=== PATIENT | female | born 1965 | race Caucasian/White ===

== ENCOUNTER 2016-10-25 09:16 | Emergency (ER) | payer OTHER ==
[~2016-10-25 09:16] MED LIST: ALPRAZOLAM0.25 MG PO; AMITRIPTYLINE H10 M1 PO; AMITRIPTYLINE25 MG PO; ATIVAN1 MG PO; BUPROPION100 MG PO; BYSTOLIC PO; CALCIUM 500 + D1 TA2 PO; CALCIUM600 M1 PO; CEFDINIR300 MG PO; CEFTIN250 MG PO; CEFTIN500 MG PO; CEPHALEXIN500 M2 PO; CIPRO 500MG TA500 MG PO; CITALOPRAM10 MG PO; CLEOCIN HC150 MG/CAP PO; CLONAZEPAM0.5 M1 PO; CLONAZEPAM1 MG PO; CYCLOBENZAPRINE10 MG PO; CYMBALTA20 MG PO; CYMBALTA30 M1 PO; CYMBALTA60 M1 PO; DEPAKENE; DEPAKOTE500 M1 PO; DEPAKOTE500 M2 PO; ELITE MAGNESIUM1 TAB PO; FLONASE ALLERG9.9 ML NAS; FLUOXETINE40 MG PO; GABAPENTIN TAB600 MG PO; HYDROXYZINE HCL25 MG PO; HYDROXYZINE50 MG PO; IBIFON 600600 MG PO; IMITREX100 MG PO; IMODIUM A-D2 M2 PO; INDOCIN 25MG CA25 MG PO; INDOCIN25 MG PO; INDOMETHACIN50 M2 PO; LEVETIRACETAM PO; LIDOCAINE HCL100 M1 MM; LORTAB 5/500 501 TAB PO; LUNESTA1 M1 PO; LUNESTA1 MG PO; MAG-OX 400400 MG PO; MAXALT MLT5 MG PO; MAXALT10 MG PO; MECLIZINE25 MG PO; METOPROLOL SUCC25 M1 PO; METOPROLOL TART25 MG PO; MIDRIN 325 MG-11 CAP PO; MIGRANAL0.5 MG/ACT IH; MIRALAX17 GM/DOSE PO; MOBIC7.5 M1 PO; NAPROSYN500 MG PO; NEXIUM 40MG40 MG PO; NORCO 325 MG-51 TA1 PO; NORCO 325 MG-51 TAB PO; NORCO 325 MG-7.1 TA1 PO; NORFLEX100 MG PO; NORFLEX30 MG/ML PO; NUVARING VAG RING VG; OMEPRAZOLE MAGN20 MG PO; PANTOPRAZOLE40 MG PO; PERCOCET 325 MG1 TA2 PO; PERCOCET 325 MG1 TA4 PO; PHENERGAN 25 TA25 MG PO; PHENTERMINE H37.5 M3 PO; PHENTERMINE15 MG PO; PROPRANOLOL HCL80 M1 PO; PROPRANOLOL HY120 MG PO; PROPRANOLOL HY160 MG PO; PROPRANOLOL60 MG PO; PROTRIPTYLINE PO; PYRIDIUM100 M1 PO; QSYMIA 11.25 MG1 CER PO; RANITIDINE HCL150 MG PO; RITE AID MAGNE500 MG PO; SERTRALINE100 MG PO; SLOW-MAG535 MG PO; SUMATRIPTAN SU100 MG PO; SUMATRIPTAN SUC25 MG PO; TOPAMAX25 M1 PO; TOPAMAX50 M1 PO; TOPAMAX50 MG PO; TYLENOL 500MG500 MG PO; VITAMIN B2100 MG PO; ZANAFLEX 4MG TAB4 MG PO; ZOCOR 20MG20 MG PO; ZOFRAN ODT8 MG PO; ZOLOFT100 MG PO; [UNRECOGNIZED DRUG - OTHER] PO
[2016-10-25] MEDS ORDERED: CIPRO250 M1 PO (10:26)
[2016-10-25 10:52] VITALS: BP 130/81
== END 2016-10-25 10:50 | disposition home or self-care (01) ==
LOC: ED 09:16
DX: N30.00 Acute cystitis without hematuria (principal)
CPT/HCPCS: J1885

== ENCOUNTER → 2016-11-01 | Outpatient (CLI) | payer OTHER ==
[~2016-11-01] MED LIST changes: +CIPRO250 M1 PO
== END ==
LOC: LAB 15:55
DX: B37.3 Candidiasis of vulva and vagina (principal)

== ENCOUNTER 2018-03-03 20:11 | Emergency (ER) | payer OTHER ==
[~2018-03-03] VITALS: Ht 157.5 cm; Wt 97.7 kg
[~2018-03-03 20:11] MED LIST changes: +AMBIEN5 M1 PO; +HEARTBURN RELI150 MG PO; -PANTOPRAZOLE40 MG PO; +PROTONIX TR40 M1 PO; +ZONISAMIDE100 MG PO
[2018-03-03] MEDS ORDERED: PERCOCET 325 MG1 TA2 PO (20:24)
[2018-03-03] MEDS ORDERED: OTEZLA30 MG PO (20:27)
[2018-03-03] MEDS ORDERED: BELVIQ10 MG PO (20:28)
[2018-03-03] MEDS ORDERED: MOBIC15 M1 PO (20:29)
[2018-03-03] MEDS ORDERED: MEDI-FIRST ASP325 MG PO (20:29)
[2018-03-03] MEDS ORDERED: SUNMARK MAGNES250 MG PO (20:29)
[2018-03-03 22:40] VITALS: BP 134/76
== END 2018-03-03 22:40 | disposition home or self-care (01) ==
LOC: ED 20:11
DX: M94.0 Chondrocostal junction syndrome [Tietze] (principal); W19.XXXA Unspecified fall, initial encounter; Y92.009 Unspecified place in unspecified non-institutional (private) residence as the place of occurrence of the external cause; S82.891D Other fracture of right lower leg, subsequent encounter for closed fracture with routine healing; W19.XXXD Unspecified fall, subsequent encounter; Z79.899 Other long term (current) drug therapy

== ENCOUNTER → 2018-03-29 | Outpatient (CLI) | payer OTHER ==
[2018-03-03 22:40] VITALS: BP 134/76
[~2018-03-29] MED LIST changes: +BELVIQ10 MG PO; +MEDI-FIRST ASP325 MG PO; +MOBIC15 M1 PO; +OTEZLA30 MG PO; +SUNMARK MAGNES250 MG PO
== END ==
LOC: RAD 10:54
DX: S82.891D Other fracture of right lower leg, subsequent encounter for closed fracture with routine healing (principal); S82.51XD Displaced fracture of medial malleolus of right tibia, subsequent encounter for closed fracture with routine healing; M25.871 Other specified joint disorders, right ankle and foot; Z96.7 Presence of other bone and tendon implants

== ENCOUNTER 2018-04-01 15:54 | Emergency (ER) | payer OTHER ==
[~2018-04-01] VITALS: Ht 157.5 cm; Wt 99.5 kg
[2018-04-01 18:04] VITALS: BP 136/82
== END 2018-04-01 17:45 | disposition home or self-care (01) ==
LOC: ED 15:54
DX: R51 Headache (principal); Z79.899 Other long term (current) drug therapy; G43.909 Migraine, unspecified, not intractable, without status migrainosus
CPT/HCPCS: J1885; J2765; J7030

== ENCOUNTER → 2018-04-12 | Outpatient (CLI) | payer OTHER ==
[2018-04-01 18:04] VITALS: BP 136/82
== END ==
LOC: RAD 08:50
DX: S82.61XD Displaced fracture of lateral malleolus of right fibula, subsequent encounter for closed fracture with routine healing (principal); Z96.89 Presence of other specified functional implants

== ENCOUNTER 2018-07-13 13:30 | Outpatient (RCR) | payer OTHER | END 2018-07-16 | disposition home or self-care (01) | LOC: PT | DX: S82.401D Unspecified fracture of shaft of right fibula, subsequent encounter for closed fracture with routine healing (principal) ==

== ENCOUNTER 2018-07-18 10:00 | Outpatient (RCR) | payer OTHER | END 2018-07-18 10:30 | disposition home or self-care (01) | LOC: PT 10:00 | DX: S82.401D Unspecified fracture of shaft of right fibula, subsequent encounter for closed fracture with routine healing (principal) ==

== ENCOUNTER → 2018-07-18 | Outpatient (CLI) | payer OTHER | LOC: RAD 10:31 | DX: Z09 Encounter for follow-up examination after completed treatment for conditions other than malignant neoplasm (principal); Z87.81 Personal history of (healed) traumatic fracture; Z96.7 Presence of other bone and tendon implants; Z98.890 Other specified postprocedural states; M19.071 Primary osteoarthritis, right ankle and foot ==

== ENCOUNTER → 2019-05-30 | Outpatient (CLI) | payer OTHER ==
[2019-01-24 16:01] VITALS: BP 138/81
== END ==
LOC: RAD 09:21
DX: M25.571 Pain in right ankle and joints of right foot (principal)

== ENCOUNTER → 2019-06-25 | Outpatient (CLI) | payer OTHER ==
[2019-01-24 16:01] VITALS: BP 138/81
== END ==
LOC: LAB 10:59
DX: R30.0 Dysuria (principal)

== ENCOUNTER → 2020-03-06 | Outpatient (CLI) | payer OTHER ==
[2020-02-07 19:35] VITALS: BP 165/85
[~2020-03-06] MED LIST changes: +ABILIFY 10MG TA10 MG PO; +AIMOVIG AU140 MG/1 M SQ; +CALCIUM 600 MG-1 TAB PO; +RELPAX 40MG TAB40 MG PO; +TOPAMAX200 M1 PO; +VITAMIN B122500 MC1 PO
== END ==
LOC: LAB 17:22
DX: J02.9 Acute pharyngitis, unspecified (principal); R50.9 Fever, unspecified; R43.2 Parageusia; R43.0 Anosmia; R09.81 Nasal congestion; R05 Cough; Z20.828 Contact with and (suspected) exposure to other viral communicable diseases

== ENCOUNTER → 2020-04-09 | Outpatient (CLI) | payer OTHER ==
[2020-02-07 19:35] VITALS: BP 165/85
== END ==
LOC: RAD 15:37 → LAB 15:37
DX: M25.571 Pain in right ankle and joints of right foot (principal)

== ENCOUNTER 2021-04-29 14:35 | Emergency (ER) | payer OTHER ==
[~2021-04-29] VITALS: Ht 157.5 cm; Wt 93.0 kg
[2021-04-29] MEDS ORDERED: ATORVASTATIN CA20 MG PO (14:59)
[2021-04-29] MEDS ORDERED: WELLBUTRIN ×2 (15:00→15:01)
[2021-04-29] MEDS ORDERED: LAMICTAL 25MG T25 MG PO (15:02)
[2021-04-29] MEDS ORDERED: BENAZEPRIL HCL20 MG PO (15:03)
[2021-04-29 15:25] LABS: BASO # 0.04 (0.02-0.10); EOS # 0.37 (0.04-0.40); EOS % 3.4 % (1.0-5.0); HEMOGLOBIN 11.5 g/dL (12.5-16.0); LYMPH# 4.24 (1.50-4.00); MEAN CELL VOLUME 82 fl (78-100); MEAN CORPUSCULAR HEMOGLOBIN 26 pg (27-31); MEAN CORPUSCULAR HGB CONC 32 g/dL (33-37); MEAN PLATELET VOLUME 10.5 fl (7.4-10.4); MONO # 0.89 (0.20-0.80); NEU # 5.35 (1.40-6.50); PLATELET COUNT 335 K/mm3 (130-400); RED BLOOD COUNT 4.37 M/mm3 (4.10-5.30); RED CELL DISTRIBUTION WIDTH 13.5 % (11.5-14.5); WHITE BLOOD COUNT 10.9 K/mm3 (4.8-10.8)
[2021-04-29 15:44] LABS: ALBUMIN 4.1 g/dL (3.5-5.0); SODIUM 139 mmol/L (136-145)
[2021-04-29 15:45] LABS: CALCIUM 10.4 mg/dL (8.3-10.5)
[2021-04-29 15:46] LABS: GLUCOSE 109 mg/dL (65-105); TOTAL PROTEIN 7.5 g/dL (6.4-8.3)
[2021-04-29 15:47] LABS: CARBON DIOXIDE 23 mmol/L (22-29)
[2021-04-29 15:48] LABS: TOTAL BILIRUBIN 0.3 mg/dL (0.2-1.2)
[2021-04-29 15:52] LABS: AST-SGOT 15 U/L (5-34)
[2021-04-29 15:53] LABS: ALT/SGPT 21 U/L (0-55)
[2021-04-29 16:01] LABS: TROPONIN-I < 0.03 ng/mL (<0.030)
[2021-04-29 16:33] LABS: D-DIMER 0.18 mg/L FEU (0.15-0.50)
[2021-04-29 17:10] VITALS: BP 147/98
[2021-04-29] MEDS ORDERED: ATIVAN0.5 MG PO (17:10)
== END 2021-04-29 15:45 | disposition home or self-care (01) ==
LOC: ED 14:35
PROVIDERS: Physician Assistant
DX: F41.9 Anxiety disorder, unspecified (principal); R07.89 Other chest pain; F32.9 Major depressive disorder, single episode, unspecified; I10 Essential (primary) hypertension; E78.5 Hyperlipidemia, unspecified; Z79.899 Other long term (current) drug therapy
CPT/HCPCS: J1885

== ENCOUNTER → 2021-05-19 | Outpatient (CLI) | payer OTHER ==
[~2021-05-19] MED LIST changes: +ATIVAN0.5 MG PO; +ATORVASTATIN CA20 MG PO; +BENAZEPRIL HCL20 MG PO; +LAMICTAL 25MG T25 MG PO; +WELLBUTRIN
[2021-05-19 16:41] LABS: BASO # 0.04 (0.02-0.10); EOS # 0.37 (0.04-0.40); HEMATOCRIT 37.1 % (37.0-47.0); HEMOGLOBIN 11.7 g/dL (12.5-16.0); LYMPH# 4.26 (1.50-4.00); MEAN CELL VOLUME 83 fl (78-100); MEAN CORPUSCULAR HEMOGLOBIN 26 pg (27-31); MEAN CORPUSCULAR HGB CONC 32 g/dL (33-37); MEAN PLATELET VOLUME 9.7 fl (7.4-10.4); MONO # 1.11 (0.20-0.80); NEU # 6.52 (1.40-6.50); PLATELET COUNT 443 K/mm3 (130-400); RED BLOOD COUNT 4.49 M/mm3 (4.10-5.30); RED CELL DISTRIBUTION WIDTH 13.8 % (11.5-14.5); WHITE BLOOD COUNT 12.4 K/mm3 (4.8-10.8)
[2021-05-19 16:50] LABS: POTASSIUM 4.4 mmol/L (3.5-5.1)
[2021-05-19 16:51] LABS: CALCIUM 10.4 mg/dL (8.3-10.5)
== END ==
LOC: LAB 16:30
PROVIDERS: Internal Medicine Cardiovascular Disease
DX: Z01.89 Encounter for other specified special examinations (principal)

== ENCOUNTER 2022-05-05 03:29 | Emergency (ER) | payer OTHER ==
[~2022-05-05] VITALS: Ht 157.5 cm; Wt 89.6 kg
[2022-05-05] MEDS ORDERED: EMGALITY120 MG/1 M SQ (03:45)
[2022-05-05] MEDS ORDERED: GABAPENTIN100 MG PO (03:47)
[2022-05-05] MEDS ORDERED: ARMODAFINIL150 MG PO (03:48)
[2022-05-05 04:27] LABS: BASO # 0.02 K/mm3 (0.02-0.10); EOS # 0.77 K/mm3 (0.04-0.40); HEMATOCRIT 43.7 % (37.0-47.0); HEMOGLOBIN 13.7 g/dL (12.5-16.0); LYMPH# 2.86 K/mm3 (1.50-4.00); MEAN CELL VOLUME 81 fl (78-100); MEAN CORPUSCULAR HEMOGLOBIN 26 pg (27-31); MEAN CORPUSCULAR HGB CONC 31 g/dL (33-37); MEAN PLATELET VOLUME 10.3 fl (7.4-10.4); MONO # 1.32 K/mm3 (0.20-0.80); NEU # 10.31 K/mm3 (1.40-6.50); PLATELET COUNT 400 K/mm3 (130-400); RED BLOOD COUNT 5.37 M/mm3 (4.10-5.30); RED CELL DISTRIBUTION WIDTH 19.4 % (11.5-14.5); WHITE BLOOD COUNT 15.4 K/mm3 (4.8-10.8)
[2022-05-05 04:47] LABS: URINE APPEARANCE CLEAR; URINE BILIRUBIN NEGATIVE (NEGATIVE); URINE COLOR YELLOW; URINE GLUCOSE NEGATIVE (NEGATIVE); URINE KETONE NEGATIVE (NEGATIVE); URINE PROTEIN(semi-quant) NEGATIVE (NEGATIVE)
[2022-05-05 04:48] LABS: URINE BLOOD TRACE (NEGATIVE); URINE LEUKOCYTE ESTERASE NEGATIVE (NEGATIVE); URINE MUCUS PRESENT (NOT PRESENT); URINE NITRATE NEGATIVE (NEGATIVE); URINE UROBILINOGEN NORMAL (NORMAL); URINE WBC 0-1 /hpf (0-3)
[2022-05-05 05:05] LABS: ALBUMIN 4.2 g/dL (3.5-5.0)
[2022-05-05 05:06] LABS: POTASSIUM 4.1 mmol/L (3.5-5.1)
[2022-05-05 05:07] LABS: CALCIUM 10.1 mg/dL (8.3-10.5)
[2022-05-05 05:08] LABS: TOTAL PROTEIN 6.9 g/dL (6.4-8.3)
[2022-05-05 05:10] LABS: TOTAL BILIRUBIN 0.4 mg/dL (0.2-1.2)
[2022-05-05 08:19] VITALS: BP 123/73
== END 2022-05-05 08:15 | disposition home or self-care (01) ==
LOC: ED 03:29
PROVIDERS: Physician Assistant
DX: K52.9 Noninfective gastroenteritis and colitis, unspecified (principal)
CPT/HCPCS: J1885; J2405; J3010; J7030

== ENCOUNTER 2022-06-25 14:27 | Outpatient (RCR) | payer OTHER ==
[~2022-06-25 14:27] MED LIST changes: +ARMODAFINIL150 MG PO; +EMGALITY120 MG/1 M SQ; +GABAPENTIN100 MG PO
== END 2022-07-12 | disposition home or self-care (01) ==
LOC: PT
DX: M47.812 Spondylosis without myelopathy or radiculopathy, cervical region (principal)

== ENCOUNTER 2022-06-30 14:16 | Emergency (ER) | payer OTHER ==
[~2022-06-30] VITALS: Ht 157.5 cm; Wt 88.6 kg
[2022-06-30 14:44] VITALS: BP 114/56
[2022-06-30 15:13] LABS: BASO # 0.04 K/mm3 (0.02-0.10); EOS # 0.67 K/mm3 (0.04-0.40); EOS % 6.6 % (1.0-5.0); HEMATOCRIT 34.7 % (37.0-47.0); HEMOGLOBIN 11.5 g/dL (12.5-16.0); LYMPH# 2.99 K/mm3 (1.50-4.00); MEAN CELL VOLUME 84 fl (78-100); MEAN CORPUSCULAR HEMOGLOBIN 28 pg (27-31); MEAN CORPUSCULAR HGB CONC 33 g/dL (33-37); MEAN PLATELET VOLUME 9.8 fl (7.4-10.4); MONO # 0.93 K/mm3 (0.20-0.80); NEU # 5.45 K/mm3 (1.40-6.50); PLATELET COUNT 298 K/mm3 (130-400); RED BLOOD COUNT 4.12 M/mm3 (4.10-5.30); RED CELL DISTRIBUTION WIDTH 13.7 % (11.5-14.5); WHITE BLOOD COUNT 10.1 K/mm3 (4.8-10.8)
[2022-06-30 15:25] LABS: POTASSIUM 4.5 mmol/L (3.5-5.1); SODIUM 141 mmol/L (136-145)
[2022-06-30 15:26] LABS: CALCIUM 10.1 mg/dL (8.3-10.5)
[2022-06-30 15:28] LABS: GLUCOSE 96 mg/dL (65-105); TOTAL PROTEIN 6.6 g/dL (6.4-8.3)
[2022-06-30 15:29] LABS: CARBON DIOXIDE 27 mmol/L (22-29); TOTAL BILIRUBIN 0.3 mg/dL (0.2-1.2)
[2022-06-30 15:33] LABS: AST-SGOT 14 U/L (5-34)
[2022-06-30 15:34] LABS: ALT/SGPT 21 U/L (0-55)
[2022-06-30 16:02] LABS: TROPONIN-I < 0.030 ng/mL (<0.030)
== END 2022-06-30 16:17 | disposition home or self-care (01) ==
LOC: ED 14:16
PROVIDERS: Physician Assistant
DX: F41.9 Anxiety disorder, unspecified (principal); Z28.310 Unvaccinated for COVID-19

== ENCOUNTER 2022-07-15 15:30 | Outpatient (RCR) | payer OTHER | END 2022-08-11 | disposition home or self-care (01) | LOC: PT | DX: M47.812 Spondylosis without myelopathy or radiculopathy, cervical region (principal) ==

== ENCOUNTER → 2022-10-22 | Outpatient (CLI) | payer OTHER | LOC: LAB 09:14 | DX: I63.81 Other cerebral infarction due to occlusion or stenosis of small artery (principal); Z79.899 Other long term (current) drug therapy ==

== ENCOUNTER → 2024-02-24 | Outpatient (CLI) | payer OTHER ==
[~2024-02-24] MED LIST changes: +QSYMIA 7.5 MG-41 CER PO; +VRAYLAR1.5 MG PO
[2024-02-24 12:22] LABS: ALBUMIN 4.3 g/dL (3.5-5.0)
[2024-02-24 12:24] LABS: CALCIUM 10.1 mg/dL (8.3-10.5)
[2024-02-24 12:25] LABS: BASO # 0.04 K/mm3 (0.02-0.10); EOS # 0.18 K/mm3 (0.04-0.40); EOS % 1.6 % (1.0-5.0); HEMATOCRIT 38.8 % (37.0-47.0); HEMOGLOBIN 12.8 g/dL (12.5-16.0); LYMPH# 3.85 K/mm3 (1.50-4.00); MEAN CELL VOLUME 86 fl (78-100); MEAN CORPUSCULAR HEMOGLOBIN 28 pg (27-31); MEAN CORPUSCULAR HGB CONC 33 g/dL (33-37); MEAN PLATELET VOLUME 10.1 fl (7.4-10.4); NEU # 6.09 K/mm3 (1.40-6.50); PLATELET COUNT 371 K/mm3 (130-400); RED BLOOD COUNT 4.52 M/mm3 (4.10-5.30); RED CELL DISTRIBUTION WIDTH 13.4 % (11.5-14.5); TOTAL PROTEIN 7.1 g/dL (6.4-8.3)
[2024-02-24 12:27] LABS: TOTAL BILIRUBIN 0.4 mg/dL (0.2-1.2)
== END ==
LOC: LAB 11:56
DX: L40.0 Psoriasis vulgaris (principal)